=== PATIENT | female | born 1960 | race Caucasian/White ===

== ENCOUNTER → 2019-02-24 | Outpatient (CLI) | payer OTHER | LOC: RAD 13:01 | DX: R06.02 Shortness of breath (principal); R06.00 Dyspnea, unspecified; M41.84 Other forms of scoliosis, thoracic region ==

== ENCOUNTER → 2020-12-28 | Outpatient (CLI) | payer OTHER ==
[~2020-12-28] MED LIST: ASA81BEC PO; BYSTOLIC10 MG PO; CALCIUM500 MG PO; CARAFATE 1 GM TA1 GM PO; COENZYME Q-1050 MG PO; CRESTOR40 MG PO; EFFIENT10 MG PO; MAGNESIUM250 M1 PO; MINIVELLE1 EAC1 PO; OMEPRAZOLE40 MG PO; ONE-A-DAY WOMENS PO; POTASSIUM GLUCO99 M2 PO; SINGULAIR 10 MG10 MG PO; SYMBICORT160 MCG/4. INH
== END ==
LOC: SJCVCIMAG 12:54
PROVIDERS: ATTEND Internal Medicine Cardiovascular Disease
DX: I25.9 Chronic ischemic heart disease, unspecified (principal); I49.3 Ventricular premature depolarization; I21.09 ST elevation (STEMI) myocardial infarction involving other coronary artery of anterior wall; R07.9 Chest pain, unspecified; R94.31 Abnormal electrocardiogram [ECG] [EKG]; I25.10 Atherosclerotic heart disease of native coronary artery without angina pectoris; E78.5 Hyperlipidemia, unspecified

== ENCOUNTER 2020-12-29 08:00 | Observation (INO) | payer OTHER ==
[~2020-12-29] VITALS: Ht 157.5 cm; Wt 74.4 kg
[2020-12-29 08:38] LABS: HEMATOCRIT 40.3 % (37.0-47.0); HEMOGLOBIN 13.8 gm/dL (12.0-15.0); MCH 32.2 pg (26.0-34.0); MCHC 34.2 g/dL (28.0-37.0); MCV 94.3 fL (80.0-100.0); RBC 4.27 mil/uL (4.20-5.00); RDW 11.6 % (10.5-14.5); WBC 4.4 thou/uL (4.0-11.0)
[2020-12-29 08:41] VITALS: BP 133/65
[2020-12-29] MEDS ORDERED: CALCIUM500 MG PO (08:46)
[2020-12-29] MEDS ORDERED: SYMBICORT160 MCG/4. INH (08:46)
[2020-12-29] MEDS ORDERED: COENZYME Q-1050 MG PO (08:48)
[2020-12-29] MEDS ORDERED: SINGULAIR 10 MG10 MG PO (08:49)
[2020-12-29] MEDS ORDERED: MAGNESIUM250 M1 PO (08:49)
[2020-12-29] MEDS ORDERED: MINIVELLE1 EAC1 PO (08:49)
[2020-12-29] MEDS ORDERED: ONE-A-DAY WOMENS PO (08:50)
[2020-12-29] MEDS ORDERED: OMEPRAZOLE40 MG PO (08:51)
[2020-12-29] MEDS ORDERED: CARAFATE 1 GM TA1 GM PO (08:52)
[2020-12-29] MEDS ORDERED: POTASSIUM GLUCO99 M2 PO (08:52)
[2020-12-29] MEDS ORDERED: BYSTOLIC10 MG PO (08:52)
[2020-12-29] MEDS ORDERED: CRESTOR40 MG PO (08:53)
[2020-12-29] MEDS ORDERED: ASA81BEC PO (08:54)
[2020-12-29 08:55] LABS: CALCIUM 8.7 mg/dL (8.5-10.1); CREATININE 0.8 mg/dL (0.6-1.0); POTASSIUM 3.8 mmol/L (3.5-5.1)
[2020-12-29] MEDS ORDERED: EFFIENT10 MG PO (11:55)
--- NOTE | 2020-12-29 13:12 | NUR ---
REPORT GIVEN TO LIZZ CAMPBELL ON CCU FOR ADMISSION TO RM 213.
--- NOTE | 2020-12-29 13:19 | EKG ---
[place] [address] [facility] [place] [address] ELECTROCARDIOGRAM REPORT Name: GAVI LEE Room #: [facility]#: [id number] Admission: 12/29/20 Attend Phys: Saji Zuluaga MD, Discharge: Date of : 64 Report #: [id number] [facility] Test Date: 2020-12-29 Test Time: 08:31:16 Pat Name: GAVI LEE Department: Room: Gender: F Park Ranger: SBUL : 1960 Requested By: Saji Zuluaga Order Number: [id number] MD: Nick Gross Measurements Intervals Dozier Rate: 65 P: -18 MS: 168 QRS: -7 QRSD: 96 T: -47 QT: 417 QTc: 434 Interpretive Statements Sinus rhythm Left ventricular hypertrophy Abnormal T, consider ischemia, inferior leads No previous ECG available for comparison Electronically Signed On 12-29-2020 13:19:19 CDT by Nick Gross [email or web address] <ELECTRONICALLY SIGNED> By: Nick Gross MD, [facility] 12/29/20 1319 0831 0831 Nick Gross MD, FACC /EPI
[2020-12-29 14:00] VITALS: BP 128/59
[2020-12-29 15:00] VITALS: BP 125/65
[2020-12-29 16:00] VITALS: BP 135/65
--- NOTE | 2020-12-29 16:31 | CATHLAB ---
[facility] [place] [address] INVASIVE PROCEDURE REPORT Name: GAVI LEE Room #: 213-P ADM Leni M.R.#: [id number] Admission: 12/29/20 Attend Phys: Saji Zuluaga MD, Discharge: Date of : 64 Report #: [id number] THIS REPORT FOR: cc: Alec Esquivel,Saji Santos MD [facility] ~ APPROVED REPORT Study performed: 12/29/2020 09:08:57 Patient Details Patient Status: Out-Patient Room #: The patient is a 60 year-old female Event Personnel Saji Zuluaga Field Marketer, Linda Andino Williams, Carly RTR Scrub, Zabrina Awan RN supervisor travel information center Performed Art Access - R femoral artery* Left Heart Cath w/or w/o Coronaries [id number] [facility] GI[facility] Place w/wo Plasty Single RCA 923907 27208 Initial Mod Sed Same Phys/QHP Gr5y 368413 97816 Mod Sed Same Phys/QHP Ea 744606 Hemostasis w/ Mynx Aortogram Abdominal Peripheral Angio 763487 Indication Chest pain Procedure Narrative The Right Groin^ was infiltrated with 1% Lidocaine subcutaneous anesthesia. A PINNACLE 6FR Sheath #[id number] sheath was inserted into the RFA 6F^. Coronary angiography was performed using coronary diagnostic catheters. The right coronary system was accessed and visualized with a JR4 catheter. The left coronary system was accessed and visualized with a JL4 catheter. The left ventricle was accessed and visualized with a STR PIG catheter. Left ventriculogram was performed in 30 degree projection. There was no hematoma. Intraoperative Conscious Sedation Sedation start time: 950 Case end Time: 1037 Fentanyl 100 mcg Versed 2 mg [facility] [address] [place] [address] INVASIVE PROCEDURE REPORT Name: GAVI LEE Room #: 213-P [facility] IN ..#: [id number] Admission: 12/29/20 Attend Phys: Saji Zuluaga, Discharge: Date of : 64 Report #: [id number] Fluoro Time: 5.50 minutes Dose: DAP 8731.80 cGycm2 1244 mGy Contrast Type and Amount: Visipaque 165 ml Hemodynamics The aortic pressure is 167/67 mmHg with a mean of 96 mmHg. The left ventricular pressure is 157/10 mmHg with a mean of mmHg. The left ventricular end diastolic pressure is 19 mmHg. PCI Technique Lesion Percutaneous coronary intervention was performed on the proximal right coronary artery. A LAUNCHER 6FR JR 4 90CM #[id number] Guide Catheter was used to engage the RCA ostium. A Luge Wire .014 x 182CM #[id number] Interventional Guidewire was used to cross the lesion. BALLOON DILATION A Balloon catheter Sprinter OTW 2.5 x 12 #[id number] was inserted and inflated up to 12.00atm for 24seconds. Additional Inflation: 14.00atm for 23seconds. Additional Inflation: 18.00atm for 20seconds. STENT DEPLOYMENT A stent RESOLUTE BHUPINDER RX 3.0 X 18 #[id number] was inserted and inflated up to 12.00atm for 30seconds. Additional Inflation: 15.00atm for 25seconds. Conclusion #1 Successful PTCA stent of a subtotal proximal dominant right coronary artery lesion. Placement of a 3 oh by 18 resolute Bhupinder LENCHO grade III flow mild distal disease. #2 left main mild disease giving rise to LAD and circumflex. #3 LAD with an eccentric 50 to 60% mid vessel lesion at the takeoff of a small diagonal branch which has a high-grade lesion will follow LAD extends around the apex preserved #4 circumflex OM small mildly diseased. #5 normal left jugular size and systolic function EF 55% #6 abdominal aortogram revealed mild irregularity but no aneurysm formation. Recommendations and plan: Continue aggressive risk factor modification. Dual antiplatelet therapy has been initiated. [address] [address] INVASIVE PROCEDURE REPORT Name: AGVI LEE Room #: 213-P [facility] IN M.R.#: [id number] Admission: 12/29/20 Attend Phys: Saji Zuluaga, Discharge: Date of : 64 Report #: [id number] Transfer to CCU to follow post coronary stent protocol. Resolution of EKG changes and chest pain. <ELECTRONICALLY SIGNED> By: Saji Zuluaga MD, FACC 12/29/201630 30 30 Saji Zuluaga MD, FACC /INF
--- NOTE | 2020-12-29 18:19 | NUR ---
PT ADMITTED FROM FIRE OFFICIAL. ADMISSION HX AND ASSESSMENT COMPLETED. PT ALERT AND ORIENTED. VSS. PRN PAIN MED GIVEN FOR SAUL. RIGHT GROIN INCISION C/D/I. NO HEMATOMA NOTED. PT ORIENTED TO THE ROOM AND THE CALL LIGHT SYSTEM.
[2020-12-29 20:04] VITALS: BP 111/59
[2020-12-30 04:10] LABS: ALBUMIN 2.9 g/dL (3.4-5.0); CALCIUM 8.3 mg/dL (8.5-10.1); CREATININE 0.8 mg/dL (0.6-1.0); TOTAL BILIRUBIN 0.3 mg/dL (0.2-1.0); TOTAL PROTEIN 6.1 g/dL (6.4-8.2)
[2020-12-30 04:15] LABS: HEMATOCRIT 37.5 % (37.0-47.0); HEMOGLOBIN 12.9 gm/dL (12.0-15.0); MCH 32.8 pg (26.0-34.0); MCHC 34.3 g/dL (28.0-37.0); MCV 95.5 fL (80.0-100.0); RBC 3.93 mil/uL (4.20-5.00); WBC 5.7 thou/uL (4.0-11.0)
[2020-12-30 04:58] VITALS: BP 119/61
--- NOTE | 2020-12-30 05:15 | NUR ---
RECEIVED THE PATIENT AT 1900H.PATIENT IS ALERT AND ORIENTEDX4.ON ROOM AIR BREATHING SPONTANEOUSLY.WITH RIGHT GROIN SITE COVERED WITH DRESSING C/D/I.NO HEMATOMA OR ANY COMPLICATIONS NOTED.ALL NEEDS ATTENDED.
[2020-12-30 07:38] VITALS: BP 1379/53
[2020-12-30 10:17] VITALS: BP 1379/53
--- NOTE | 2020-12-30 10:47 | NUR ---
TOOK OVER CARE FOR THIS PATIENT AT 0700. PATIENT RESTING COMFORTABLY IN BED; PATIENT AXOX4; PLEASANT. PATIENT DENIES ANY NEEDS AT THIS TIME. DENIES CHEST PAIN, HEADACHE, DIZZINESS, OR SOA. FALL PRECAUTIONS IN PLACE AND CALL LIGHT WITHIN REACH. SPOUSE AT BEDSIDE WHEN DISCHARGE INSTRUCTIONS WERE COMPLETED. PATIENT DENIES ANY QUESTIONS OR CONCERNS; AGREEABLE TO DISCHARGE PLAN.
== END 2020-12-30 11:30 | disposition home or self-care (01) ==
LOC: CATH 08:00 → 2N 13:50 → CATH 14:14 → 2N 12-30 11:30
PROVIDERS: Nurse Practitioner Adult Health; ADMIT Internal Medicine Cardiovascular Disease; ATTEND Internal Medicine Cardiovascular Disease
DX: I25.10 Atherosclerotic heart disease of native coronary artery without angina pectoris (principal); J45.909 Unspecified asthma, uncomplicated; I10 Essential (primary) hypertension; E78.5 Hyperlipidemia, unspecified; Z79.82 Long term (current) use of aspirin; Z79.899 Other long term (current) drug therapy

== ENCOUNTER → 2021-03-06 | Outpatient (CLI) | payer OTHER | LOC: SJCVCIMAG 11:12 | PROVIDERS: ATTEND Internal Medicine Cardiovascular Disease | DX: I49.3 Ventricular premature depolarization (principal); R00.8 Other abnormalities of heart beat; I25.10 Atherosclerotic heart disease of native coronary artery without angina pectoris; R06.00 Dyspnea, unspecified; R07.89 Other chest pain; R53.83 Other fatigue ==